=== PATIENT | female | born 1955 | race African-American/Black ===

== ENCOUNTER 2021-09-05 11:45 | Emergency (ER) | payer OTHER ==
[~2021-09-05] VITALS: Ht 170.2 cm; Wt 80.5 kg
[2021-09-05] MEDS ORDERED: nyquil (12:02)
[2021-09-05 14:10] LABS: BASO # 0.1 10^3/uL (0.0-0.2); BASO % 1.1 % (0.0-1.0); EOS % 0.4 % (0.0-3.0); HEMATOCRIT 40.8 % (36.0-47.0); HEMOGLOBIN 13.1 g/dl (12.0-15.5); LYMPH # 1.1 10^3/uL (1.5-5.0); LYMPH % 24.2 % (24.0-44.0); MEAN CORPUSCULAR HGB CONC 32.1 g/dl (32.0-36.5); MEAN CORPUSCULAR VOLUME 96.7 fl (80.0-96.0); MONO # 0.7 10^3/uL (0.0-0.8); MONO % 16.1 % (2.0-8.0); NEUTROPHILS # 2.6 10^3/uL (1.5-8.5); PLATELET COUNT, AUTOMATED 253 10^3/uL (150-450); RED BLOOD COUNT 4.22 10^6/uL (4.00-5.40); WHITE BLOOD COUNT 4.5 10^3/uL (4.0-10.0)
[2021-09-05] MEDS ORDERED: diphenhydrAMINE 50MG/ML VIAL (J1200) IV ONE (14:10)
[2021-09-05] MEDS ORDERED: KETOROLAC 30 MG/ML 1ML VIAL IV ONE (14:10)
[2021-09-05] MEDS ORDERED: NS 1,000 ML IV ONE (14:10)
[2021-09-05 14:34] LABS: ERYTHROCYTE SEDIMENTATION RATE 17 mm/hr (0-30)
[2021-09-05 15:00] LABS: BLOOD UREA NITROGEN 9 MG/DL (7-18); C REACTIVE PROTEIN QUANTITATIV 1.98 MG/DL (0.00-0.30); CALCIUM LEVEL 9.6 MG/DL (8.8-10.2); CARBON DIOXIDE LEVEL 27 MEQ/L (21-32); CHLORIDE LEVEL 105 MEQ/L (98-107); CREATININE FOR GFR 1.07 MG/DL (0.55-1.30); GLOMERULAR FILTRATION RATE > 60.0 (>45); GLUCOSE, FASTING 90 MG/DL (70-100); POTASSIUM SERUM 3.6 MEQ/L (3.5-5.1); SODIUM LEVEL 139 MEQ/L (136-145)
[2021-09-05] MEDS ORDERED: ISOVUE-370 76% 100ML VIAL As Ordered ONE (15:17)
[2021-09-05] MEDS ORDERED: PROPARACAINE 0.5% OPHTH SOL 15ML OD ONE (15:40)
[2021-09-05] MEDS ORDERED: FLUORESCEIN OPHTH 1 MG STRIP OD ONE (15:45)
[2021-09-05] MEDS ORDERED: CIPROFLOXACIN 0.3% OPHTH SOLN 2.5ML OD ONE (17:15)
[2021-09-05] MEDS ORDERED: NAPR-837 PO (17:35)
[2021-09-05] MEDS ORDERED: CIPR0.3S6 OD (17:35)
[2021-09-05] MEDS ORDERED: REGL10TA6 PO (17:35)
[2021-09-05] MEDS ORDERED: ESZO1TAB8 PO (18:26)
[2021-09-05] MEDS ORDERED: VALA1TAB5 PO (18:26)
[2021-09-05] MEDS ORDERED: HYDR-3490 PO (18:26)
[2021-09-05] MEDS ORDERED: CAND32TA18 PO (18:26)
[2021-09-05] MEDS ORDERED: DILT300C21 PO (18:26)
[2021-09-05] MEDS ORDERED: IBUP-1022 PO (18:26)
[2021-09-05] MEDS ORDERED: HOME MED LIST COMPLETE! XX SCH (18:30)
[2021-09-05] MEDS ORDERED: NIRMATRELVIR/RITONAVIR (RENAL) CO-PACK (EUA) PO SCH ×3 (19:15→21:00)
[2021-09-05 19:41] VITALS: BP 148/89
[2021-09-05] MEDS ORDERED: NIRMATRELVIR/RITONAVIR CO-PACK (EMERGENCY USE AUTH) PO SCH (21:00)
== END 2021-09-05 19:45 | disposition home or self-care (01) ==
LOC: M ED 11:45
DX: U07.1 COVID-19 (principal); R51.9 Headache, unspecified; S05.01XA Injury of conjunctiva and corneal abrasion without foreign body, right eye, initial encounter; H16.001 Unspecified corneal ulcer, right eye; I10 Essential (primary) hypertension; M50.31 Other cervical disc degeneration, high cervical region; Z79.899 Other long term (current) drug therapy
CPT/HCPCS: 70450; 70481; 80048; 85025; 85652; 86140; 96361; 96374; 96375; 99284; J1200; J1885; Q9967